=== PATIENT | female | born 1945 | race Caucasian/White ===

== ENCOUNTER 2017-05-01 12:59 | Observation (INO) | payer MEDICARE ==
[2017-05-01] MEDS ORDERED: Aspirin 325 mg EC Tablets PO STA (13:34)
--- NOTE | 2017-05-01 13:35 | C.PDOC ---
History Of Present Illness 71 year old female with Hx of HTN and DM presents to the ED c/o pressure like CP radiating to her back for the past 3 days. Patient states her pain worsens with movement and is a non smoker. Patient denies Hx of heart disease, DVT/PE, SOB, nasuea, vomit, fever, abdominal pain, dizziness, headache. Time Seen by Provider: 05/01/17 13:14 Chief Complaint (Nursing): Chest Pain History Per: Patient History/Exam Limitations: no limitations Onset/Duration Of Symptoms: Days Current Symptoms Are (Timing): Still Present Severity: None Quality: Pressure Associated Symptoms: denies: Nausea, Dyspnea Exacerbating Factors: Movement Alleviating Factors: None Recent travel outside of the [place]: No Additional History Per: Patient Past Medical History Reviewed: Historical Data, Nursing Documentation, Vital Signs Vital Signs: Last Vital Signs Temp Pulse 78 05/01/17 21:43 Resp 18 05/01/17 21:43 BP 113/61 05/01/17 21:43 Pulse Ox 95 05/01/17 21:43 - Medical History PMH: Depression, Diabetes, HTN Denies: Chronic Kidney Disease Surgical History: Appendectomy - [facility] Procedures COLONOSCOPY (03/06/14) Family History: States: Unknown Family Hx - Social History Hx Tobacco Use: No Hx Alcohol Use: No Hx Substance Use: No - Immunization History Hx Tetanus Toxoid Vaccination: No Hx Influenza Vaccination: No Hx Pneumococcal Vaccination: No Review Of Systems Constitutional: Negative for: Fever, Chills Cardiovascular: Positive for: Chest Pain. Negative for: Palpitations Respiratory: Negative for: Cough, Shortness of Breath Gastrointestinal: Negative for: Nausea, Vomiting, Abdominal Pain Musculoskeletal: Positive for: Back Pain Skin: Negative for: Rash Neurological: Negative for: Weakness, Numbness Physical Exam - Physical Exam Appears: Non-toxic, No Acute Distress Skin: Normal Color, Warm, Dry Head: Atraumatic, Normacephalic Nose: No Discharge Oral Mucosa: Moist Neck: Normal ROM, Supple Chest: Symmetrical Cardiovascular: Rhythm Regular, No Murmur Respiratory: Normal Breath Sounds, No Rales, No Rhonchi, No Wheezing Gastrointestinal/Abdominal: Soft, No Tenderness, No Guarding, No Rebound Back: No CVA Tenderness, No Vertebral Tenderness Extremity: Normal ROM, No Pedal Edema, No Calf Tenderness, No Swelling Neurological/Psych: Oriented x3, Normal Speech, Normal Cognition Gait: Steady ED Course And Treatment - Laboratory Results Result Diagrams: 05/01/17 13:51 05/01/17 13:51 ECG: Interpreted By Me, Viewed By Me ECG Rhythm: Sinus Rhythm ECG Interpretation: Normal Interpretation Of ECG: EKG NSR at 88 BPM, LVH, no ST or T wave abnormalities. Rate From EC O2 Sat by Pulse Oximetry: 94 (On RA) Pulse Ox Interpretation: Normal - Radiology CXR: Interpreted by Me, Viewed By Me CXR Interpretation: Yes: Other (Mild cardiomegaly and small bilateral pleural effusions possible (left greater than right was).Mild central pulmonary venous congestion versus carotid central pulmonary vasculature. Correlation with physical exam recommended) - CT Scan/US CTA chest Other Rad Studies (CT/US): Read By Radiologist, Radiology Report Reviewed CT/US Interpretation: IMPRESSION: 1. No evidence of pulmonary embolism. 2. Mosaic perfusion abnormality noted in both lungs which could reflect areas of air trapping or small. airway disease.. Subsegmental atelectasis is noted predominantly in the dependent portion of both. lung bases. 3. Moderate to large hiatal hernia. 4. Hepatic steatosis. 5. Scattered colonic diverticula. Medical Decision Making Medical Decision Making: Plan: * EKG ordered * Blood work ordered * CXR ordered * Ecotrin 325 mg PO given * Morphine 2 mg IVp given Assessment: CP Discussed with Dr. Kenney admit to Tele obs under her service for Chest pain Disposition Discussed With : Padmaja Kenney Doctor Will See Patient In The: Hospital Counseled Patient/Family Regarding: Studies Performed, Diagnosis - Disposition Disposition: HOSPITALIZED Disposition Time: 20:11 Condition: FAIR - Clinical Impression Clinical Impression: Chest pain - Scribe Statement The provider has reviewed the documentation as recorded by the Scribe Edy Vizcaino All medical record entries made by the Scribe were at my direction and personally dictated by me. I have reviewed the chart and agree that the record accurately reflects my personal performance of the history, physical exam, medical decision making, and the department course for this patient. I have also personally directed, reviewed, and agree with the discharge instructions and disposition.
[2017-05-01] MEDS ORDERED: Aspirin 325 mg EC Tablets PO ONE (13:53)
[2017-05-01 13:57] LABS: BASO # 0.1 K/uL (0.0-0.2); BASO % 0.5 % (0.0-2.0); HEMATOCRIT 40.8 % (34.0-47.0); LYMPH # 3.3 K/uL (1.0-4.3); LYMPH % 30.6 % (20.0-40.0); MEAN CELL VOLUME 89.8 fL (81.0-99.0); MEAN CORPUSCULAR HEMOGLOBIN 29.9 pg (27.0-31.0); MEAN CORPUSCULAR HGB CONC 33.3 g/dL (33.0-37.0); MEAN PLATELET VOLUME 9.3 fL (7.2-11.7); MONO # 1.2 K/uL (0.0-0.8); MONO % 11.2 % (0.0-10.0); WHITE BLOOD COUNT 10.8 K/uL (4.8-10.8)
[2017-05-01 14:16] LABS: ALKALINE PHOSPHATASE 86 U/L (38-126); ALT/SGPT 38 U/L (9-52); AST/SGOT 25 U/L (14-36); BILIRUBIN,TOTAL 0.4 mg/dL (0.2-1.3); BLOOD UREA NITROGEN 16 mg/dL (7-17); CALCIUM 8.7 mg/dl (8.6-10.4); CARBON DIOXIDE 32 mmol/L (22-30); CHLORIDE 99 mmol/L (98-107); GFR AFRICAN-AMERICAN > 60; GLUCOSE,RANDOM 85 mg/dL (65-105); SODIUM 139 mmol/L (132-148); TOTAL PROTEIN 8.9 g/dL (6.3-8.3)
[2017-05-01 14:21] LABS: ALB/GLOB RATIO 0.9 (1.0-2.1)
--- NOTE | 2017-05-01 14:39 | RAD ---
PROCEDURE: CHEST RADIOGRAPH, 1 VIEW HISTORY: chest pain COMPARISON: None available. FINDINGS: LUNGS: Shallow lung volumes. No significant appearing consolidation appreciated. . Trace subsegmental atelectatic changes at each lung base the shallow inspiration-possible. PLEURA: No pneumothorax. Minimal small effusions possible. CARDIOVASCULAR: Mild cardiomegaly. Mild central pulmonary venous congestion/crowding central pulmonary vessels -shallow inspiration OSSEOUS STRUCTURES: Thoracic spondylosis. Bilateral shoulder arthrosis VISUALIZED UPPER ABDOMEN: Normal. OTHER FINDINGS: None. IMPRESSION: Shallow lung volumes -limiting evaluation. Mild cardiomegaly and small bilateral pleural effusions possible (left greater than right was ( Mild central pulmonary venous congestion versus carotid central pulmonary vasculature. Correlation with physical exam recommended.
[2017-05-01] MEDS ORDERED: Iodixanol 320 MG/ML 100 ML BOTTLE IV ONE (16:12)
[2017-05-01] MEDS ORDERED: DiphenhydrAMINE 50 mg/ml Inj IVP STA (16:50)
[2017-05-01] MEDS ORDERED: DiphenhydrAMINE 50 mg/ml Inj ONE (16:53)
[2017-05-01] MEDS ORDERED: MethylPREDNISolone 40 mg Vial IVP STA (17:10)
[2017-05-01] MEDS ORDERED: Dexamethasone 4 mg/1 ml IV STA (17:11)
[2017-05-01] MEDS ORDERED: Dexamethasone 4 mg/1 ml ONE (17:14)
--- NOTE | 2017-05-01 19:46 | CT ---
EXAM: CT Angiography Chest With Intravenous Contrast EXAM DATE/TIME: Exam ordered 05/01/2017 2:41 PM CLINICAL HISTORY: 71 years old, female; Pain and signs and symptoms; Shortness of breath; Chest pain; Additional info: SOB and chest pain TECHNIQUE: Axial computed tomographic angiography images of the chest with intravenous contrast using pulmonary embolism protocol. All CT scans at this facility use one or more dose reduction techniques, viz.: automated exposure control; ma/kV adjustment per patient size (including targeted exams where dose is matched to indication; i.e. head); or iterative reconstruction technique. MIP reconstructed images were created and reviewed. Coronal and sagittal reformatted images were created and reviewed. CONTRAST: 100 mL of VISI administered intravenously. COMPARISON: No relevant prior studies available. FINDINGS: Pulmonary arteries: Unremarkable. No pulmonary embolism. Aorta: No acute findings. No thoracic aortic aneurysm. Lungs: Hypoventilatory changes are noted at both lung bases. Mosaic perfusion abnormalities noted in the mid and upper lung aguilar. No mass. Pleural space: Unremarkable. No significant effusion. No pneumothorax. Heart: Unremarkable. No cardiomegaly. No significant pericardial effusion. No evidence of RV dysfunction. Mediastinum: There is a large hiatal hernia. Bones/joints: No acute fracture. No dislocation. Soft tissues: Unremarkable. Lymph nodes: Unremarkable. No enlarged lymph nodes. Liver: The liver is low in density. Stomach and bowel: Colonic diverticula are noted. IMPRESSION: 1. No evidence of pulmonary embolism. 2. Mosaic perfusion abnormality noted in both lungs which could reflect areas of air trapping or small airway disease.. Subsegmental atelectasis is noted predominantly in the dependent portion of both lung bases. 3. Moderate to large hiatal hernia. 4. Hepatic steatosis. 5. Scattered colonic diverticula.
[2017-05-01] MEDS ORDERED: Enoxaparin 150 mg Syringe SC SCH (21:00)
[2017-05-01] MEDS: Enoxaparin 80 mg Syringe SC SCH (21:44)
[2017-05-01] MEDS ORDERED: (Novolin R) Insulin Human Regular 100 units/ml vial ONE (22:04)
[2017-05-01] MEDS: (Novolin R) Insulin Human Regular 100 units/ml vial SC SCH (22:13)
[2017-05-02 00:52] VITALS: O2SAT 95
[2017-05-02 03:39] LABS: CHOLESTEROL 151 mg/dL (0-199)
[2017-05-02] MEDS: (Novolin R) Insulin Human Regular 100 units/ml vial SC SCH ×4 (07:57→17:35)
[2017-05-02] MEDS ORDERED: Pantoprazole 40 mg EC Tab PO SCH (10:00)
[2017-05-02] MEDS: Enoxaparin 80 mg Syringe SC SCH (10:12)
--- NOTE | 2017-05-02 10:25 | CP.PCM.PN ---
Subjective - Date & Time of Evaluation Date of Evaluation: 05/02/17 Time of Evaluation: 10:20 - Subjective Subjective: The pt is a 68 year old woman, non smoker, without any known CAD. The patient complained of chest pain lasting three days, worse when bending forwards and also lying down. No exertional component or CALLEJAS, dizziness or palpitations. Pt feels better now, with only mild residual pain over left breast. ECg is normal, tni are normal times three. CTA is neg for PE and echo reveals mild AI , normal Lv EF. Objective - Vital Signs/Intake and Output Vital Signs (last 24 hours): Temp Pulse Resp BP Pulse Ox 97.7 F 67 18 130/78 95 05/02/17 08:18 05/02/17 08:18 05/02/17 08:18 05/02/17 08:18 05/02/17 08:18 Intake and Output: 05/02/17 05/02/17 06:59 18:59 Intake Total 120 Balance 120 - Medications Medications: Current Medications Aspirin (Ecotrin) 81 mg PO DAILY [facility] Last Admin: 05/02/17 10:08 Dose: 81 mg Carvedilol (Coreg) 3.125 mg PO STAT [facility] Enoxaparin Sodium (Lovenox) 77 mg SC Q12H [facility] Last Admin: 05/02/17 10:12 Dose: 77 mg Glimepiride (Amaryl) 2 mg PO DAILY [facility] Last Admin: 05/02/17 10:08 Dose: 2 mg Insulin Human Regular (Novolin R) 0 unit SC ACHS [facility] PRN Reason: Protocol Last Admin: 05/02/17 10:11 Dose: 2 unit Lisinopril (Zestril) 10 mg PO DAILY [facility] Last Admin: 05/02/17 10:07 Dose: 10 mg Metformin HCl (Glucophage) 1,000 mg PO DAILY [facility] Last Admin: 05/02/17 10:11 Dose: Not Given Pantoprazole Sodium (Protonix Ec Tab) 40 mg PO DAILY [facility] Last Admin: 05/02/17 10:07 Dose: 40 mg Rosuvastatin Calcium (Crestor) 20 mg PO HS [facility] Sitagliptin Phosphate (Januvia) 50 mg PO DAILY [facility] Last Admin: 05/02/17 10:08 Dose: 50 mg - Labs Labs: 05/01/17 13:51 05/01/17 13:51 - Constitutional Appears: Well - Head Exam Head Exam: ATRAUMATIC - Eye Exam Eye Exam: EOMI - ENT Exam ENT Exam: Mucous Membranes Dry - Neck Exam Neck Exam: Full ROM - Respiratory Exam Respiratory Exam: Clear to Ausculation Bilateral - Cardiovascular Exam Cardiovascular Exam: REGULAR RHYTHM - Rectal Exam Rectal Exam: NORMAL INSPECTION - Exam External exam: NORMAL EXTERNAL EXAM - Extremities Exam Extremities Exam: Full ROM - Back Exam Back Exam: NORMAL INSPECTION - Neurological Exam Neurological Exam: Alert, Awake, Oriented x3 Assessment and Plan - Assessment and Plan (Free Text) Assessment: 1, non anginal chest pain ,pt is reassured. 2. Pt is a diabetic and is advised to undergo ecg stres testing in the future. 3. the dose of coreg 3.125 may be stopped.
[2017-05-02 16:15] VITALS: BP 116/67; RESP 20; TEMP 98.2
--- NOTE | 2017-05-02 16:15 | CP.PCM.HP ---
History of Present Illness - History of Present Illness History of Present Illness: Pt was admitted to ER for observation with diagnosis of atypical chest pain. Pt reports that as she was trying to get up from a chair noted low back pain, which then started to be reflected on her chest. THis pain persisted for 3 more days so she decided to come to the ER> PT denies sob,palpitation or diphoresis. PMH: hypertension Diabetes Tinea nigra Acute gastritis Urinary incontinence Social Hx: Neg. smoke, never smoker Socially ETOH Neg. drugs Family Hx: Mother- HTN Father- Unknown Allergies: Penicillin Meclizine Current meds: Sitagliptin 50mg- Metformin 1,000 mg 1 tab po qd Lisinopril 20 mg- HCTZ 12.5 mg 1 tab po qd Mobic 7.5 mg 1 tab po BId prn Ecotrin 81 mg 1 tab po qd Detrol LA 4 mg 1 cap po qd Norvasc 5 mg 1 tab po qd Present on Admission - Present on Admission Any Indicators Present on Admission: No Review of Systems - Constitutional Constitutional: absent: Chills, Fatigue, Fever - Cardiovascular Cardiovascular: Chest Pain. absent: Edema, Paroxysmal Nocturnal Dyspnea - Respiratory Respiratory: absent: Cough, Wheezing Past Patient History - Past Medical History & Family History Past Medical History?: Yes - Past Social History Smoking Status: Never Smoked - CARDIAC Hx Hypertension: Yes - PULMONARY Hx Respiratory Disorders: No - NEUROLOGICAL Hx Neurological Disorder: Yes Hx Vertigo: Yes - HEENT Hx HEENT Problems: No - RENAL Hx Chronic Kidney Disease: No - ENDOCRINE/METABOLIC Hx Endocrine Disorders: Yes Hx Diabetes Mellitus Type 2: Yes - HEMATOLOGICAL/ONCOLOGICAL Hx Blood Disorders: No - INTEGUMENTARY Hx Dermatological Problems: Yes Other/Comment: Vitiligo - MUSCULOSKELETAL/RHEUMATOLOGICAL Hx Falls: No - GASTROINTESTINAL Hx Gastrointestinal Disorders: No - GENITOURINARY/GYNECOLOGICAL Hx Genitourinary Disorders: Yes (DROPPED BLADDER) - PSYCHIATRIC Hx Substance Use: No - SURGICAL HISTORY Hx Appendectomy: Yes (1970) Other/Comment: Left Ovary Removed,Rt. Half Removed in 1970 - ANESTHESIA Hx Anesthesia: Yes Hx Anesthesia Reactions: No Hx Malignant Hyperthermia: No Has any member of the family had a problem w/ anesthesia?: No Meds Allergies/Adverse Reactions: Allergies Allergy/AdvReac Type Severity Reaction Status Date / Time Penicillins Allergy Verified 05/01/17 13:33 shellfish derived Allergy Verified 05/01/17 23:11 Physical Exam - Eye Exam Eye Exam: Normal appearance - ENT Exam ENT Exam: Mucous Membranes Moist, Normal Exam - Respiratory Exam Respiratory Exam: Clear to Auscultation Bilateral, NORMAL BREATHING PATTERN - Cardiovascular Exam Cardiovascular Exam: REGULAR RHYTHM, RRR, +S1, +S2 - GI/Abdominal Exam GI & Abdominal Exam: Normal Bowel Sounds Results - Vital Signs Recent Vital Signs: Last Vital Signs Temp 97.7 F 05/02/17 08:18 Pulse 65 05/02/17 11:51 Resp 18 05/02/17 08:18 BP 130/78 05/02/17 08:18 Pulse Ox 95 05/02/17 08:18 - Labs Result Diagrams: 05/01/17 13:51 05/01/17 13:51 Labs: Laboratory Results - last 24 hr 05/01/17 05/01/17 05/02/17 21:44 21:45 02:08 POC Glucose (mg/dL) 332 H 318 H Total Creatine Kinase 51 CK-MB (Mass) 0.49 Troponin I < 0.0120 NT-Pro-B Natriuret Pep 139 Triglycerides Cholesterol LDL Cholesterol Direct HDL Cholesterol 05/02/17 05/02/17 05/02/17 03:30 06:30 11:17 POC Glucose (mg/dL) 210 H 256 H Total Creatine Kinase 45 CK-MB (Mass) 0.70 Troponin I < 0.0120 NT-Pro-B Natriuret Pep Triglycerides 60 Cholesterol 151 LDL Cholesterol Direct 88 HDL Cholesterol 47 Assessment & Plan - Assessment and Plan (Free Text) Assessment: Atypical chest pain back pain ct of chest done in ER and normla given her risk as she is a dibetic will admit under observation/ diabetes cont meds bp added coreg pending eval. cardilogy eval - Date & Time Date: 05/01/17 Time: 08:00
--- NOTE | 2017-05-02 17:28 | CP.PCM.DIS ---
Provider - Provider Date of Admission: 05/01/17 20:09 Attending physician: Padmaja Kenney MD Time Spent in preparation of Discharge (in minutes): 30 Hospital Course - Lab Results Lab Results: Most Recent Lab Values WBC 10.8 K/uL (4.8-10.8) 05/01/17 13:51 RBC 4.54 Mil/uL (3.80-5.20) 05/01/17 13:51 Hgb 13.6 g/dL (11.0-16.0) 05/01/17 13:51 Hct 40.8 % (34.0-47.0) 05/01/17 13:51 MCV 89.8 fL (81.0-99.0) 05/01/17 13:51 MCH 29.9 pg (27.0-31.0) 05/01/17 13:51 MCHC 33.3 g/dL (33.0-37.0) 05/01/17 13:51 RDW 14.0 % (11.5-14.5) 05/01/17 13:51 Plt Count 221 K/uL (130-400) 05/01/17 13:51 MPV 9.3 fL (7.2-11.7) 05/01/17 13:51 Neut % (Auto) 57.7 % (50.0-75.0) 05/01/17 13:51 Lymph % (Auto) 30.6 % (20.0-40.0) 05/01/17 13:51 [place] % (Auto) 11.2 % (0.0-10.0) H 05/01/17 13:51 Eos % (Auto) 0.0 % (0.0-4.0) 05/01/17 13:51 Baso % (Auto) 0.5 % (0.0-2.0) 05/01/17 13:51 Neut # 6.2 K/uL (1.8-7.0) 05/01/17 13:51 Lymph # 3.3 K/uL (1.0-4.3) 05/01/17 13:51 [place] # 1.2 K/uL (0.0-0.8) H 05/01/17 13:51 Eos # 0.0 K/uL (0.0-0.7) 05/01/17 13:51 Baso # 0.1 K/uL (0.0-0.2) 05/01/17 13:51 D-Dimer, Quantitative 390 ng/mlDDU (0-243) H 05/01/17 13:51 Sodium 139 mmol/L (132-148) 05/01/17 13:51 Potassium 4.0 mmol/L (3.6-5.2) 05/01/17 13:51 Chloride 99 mmol/L (98-107) 05/01/17 13:51 Carbon Dioxide 32 mmol/L (22-30) H 05/01/17 13:51 Anion Gap 13 (10-20) 05/01/17 13:51 BUN 16 mg/dL (7-17) 05/01/17 13:51 Creatinine 0.5 mg/dL (0.7-1.2) L 05/01/17 13:51 Est GFR ( Amer) > 60 05/01/17 13:51 Est GFR (Non-Af Amer) > 60 05/01/17 13:51 POC Glucose (mg/dL) 167 mg/dL (65-110) H 05/02/17 16:44 Random Glucose 85 mg/dL (65-105) 05/01/17 13:51 Calcium 8.7 mg/dl (8.6-10.4) 05/01/17 13:51 Total Bilirubin 0.4 mg/dL (0.2-1.3) 05/01/17 13:51 AST 25 U/L (14-36) 05/01/17 13:51 ALT 38 U/L (9-52) 05/01/17 13:51 Alkaline Phosphatase 86 U/L (38-126) 05/01/17 13:51 Total Creatine Kinase 45 U/L (30-135) 05/02/17 03:30 CK-MB (Mass) 0.70 ng/mL (0.0-3.38) 05/02/17 03:30 Troponin I < 0.0120 ng/mL (0.00-0.120) 05/02/17 03:30 NT-Pro-B Natriuret Pep 139 pg/mL (0-900) 05/01/17 21:44 Total Protein 8.9 g/dL (6.3-8.3) H 05/01/17 13:51 Albumin 4.2 g/dL (3.5-5.0) 05/01/17 13:51 Globulin 4.7 gm/dL (2.2-3.9) H 05/01/17 13:51 Albumin/Globulin Ratio 0.9 (1.0-2.1) L 05/01/17 13:51 Triglycerides 60 mg/dL (0-149) 05/02/17 03:30 Cholesterol 151 mg/dL (0-199) 05/02/17 03:30 LDL Cholesterol Direct 88 mg/dL (0-129) 05/02/17 03:30 HDL Cholesterol 47 mg/dL (30-70) 05/02/17 03:30 Lipase 81 U/L (23-300) 05/01/17 13:51 - Hospital Course Hospital Course: Pt was admittd as precaution. PT had negative enzymes and ekg. She was elvaluated by Dr. Allen from cardiology who cleared her for dscharge and recommeded outpt stress test. PT feels well and is anxious to go home. Dc home I will see her tomorrow in my office. Discharge Exam - Head Exam Head Exam: ATRAUMATIC - Eye Exam Eye Exam: Normal appearance, PERRL - Respiratory Exam Respiratory Exam: Clear to PA & Lateral, NORMAL BREATHING PATTERN - Cardiovascular Exam Cardiovascular Exam: REGULAR RHYTHM, RRR, +S1, +S2. absent: JVD, Rubs - GI/Abdominal Exam GI & Abdominal Exam: Normal Bowel Sounds - Extremities Exam Extremities exam: full ROM - Back Exam Back exam: NORMAL INSPECTION - Neurological Exam Neurological exam: CN II-XII Intact, Oriented x3 - Psychiatric Exam Psychiatric exam: Normal Affect, Normal Mood - Skin Skin Exam: Normal Color Discharge Plan - Follow Up Plan Condition: FAIR Disposition: HOME/ ROUTINE
--- NOTE | 2017-05-02 17:30 | CP.PCM.PN ---
Subjective - Date & Time of Evaluation Date of Evaluation: 05/02/17 Time of Evaluation: 17:30 - Subjective Subjective: PATIENT WAS ADMITTED FOR CHEST PAIN; AAOX3 DENIES CHEST PAIN, SOB N/V NO SIGN OF DISTRESS NOTED Objective - Vital Signs/Intake and Output Vital Signs (last 24 hours): Temp Pulse Resp BP Pulse Ox 98.2 F 79 20 116/67 95 05/02/17 15:15 05/02/17 15:20 05/02/17 15:15 05/02/17 15:15 05/02/17 15:15 Intake and Output: 05/02/17 05/02/17 06:59 18:59 Intake Total 120 700 Balance 120 700 - Medications Medications: Current Medications Aspirin (Ecotrin) 81 mg PO DAILY [facility] Last Admin: 05/02/17 10:08 Dose: 81 mg Carvedilol (Coreg) 3.125 mg PO STAT [facility] Enoxaparin Sodium (Lovenox) 77 mg SC Q12H [facility] Last Admin: 05/02/17 10:12 Dose: 77 mg Glimepiride (Amaryl) 2 mg PO DAILY [facility] Last Admin: 05/02/17 10:08 Dose: 2 mg Insulin Human Regular (Novolin R) 0 unit SC ACHS [facility] PRN Reason: Protocol Last Admin: 05/02/17 11:39 Dose: 3 unit Lisinopril (Zestril) 10 mg PO DAILY [facility] Last Admin: 05/02/17 10:07 Dose: 10 mg Metformin HCl (Glucophage) 1,000 mg PO DAILY [facility] Last Admin: 05/02/17 10:11 Dose: Not Given Pantoprazole Sodium (Protonix Ec Tab) 40 mg PO DAILY [facility] Last Admin: 05/02/17 10:07 Dose: 40 mg Rosuvastatin Calcium (Crestor) 20 mg PO HS [facility] Sitagliptin Phosphate (Januvia) 50 mg PO DAILY [facility] Last Admin: 05/02/17 10:08 Dose: 50 mg - Labs Labs: 05/01/17 13:51 05/01/17 13:51 Assessment and Plan - Assessment and Plan (Free Text) Assessment: A/P PATIENT IS SEEN AND EXAMINED AT THE BEDSIDE; LUNG SOUND CLEAR CTA WAS LILLY TNIX3 WERE NEG ; ECG IS NORMAL DISCUSS WITH DR JUNIOR WHO CLEAR THE PATIENT FOR DC FOLLOW UP WITH DR JUNIOR TOMORROW IN HER OFFICE AROUND 2 PM ---CALL HER OFFICE TO CONFIRM CONTINUE ALL YOUR HOME MED PER MED RECS NEW RX GIVEN ASPIRIN 81 MG PO DAILY TRY TO GET SOME REST FOR A WEEK CALL DR JUNIOR OR GO TO THE EMERGENCY ROOM IF SYMPTOMS RETURN OR WORSENING DR JUNIOR AND SLUDGE CONTROL OPERATOR DISCUSS WITH PATIENT ABOUT THE RISK TO GO TO [facility] ON THE HEIGHT BUT THE PATIENT INSIST TO GO VISIT FOR HER 72TH BIRTHDAY PATIENT AGREE WITH THE DC PLAN AND VERBALIZED UNDERSTANDING
[2017-05-02 18:10] VITALS: PULSE 69
== END 2017-05-02 18:25 | disposition home or self-care (01) ==
LOC: C.ER 12:59 → C.9E 20:09 → C.6T 22:28
PROVIDERS: ADMIT Internal Medicine; ATTEND Internal Medicine
DX: R07.9 Chest pain, unspecified (principal); I10 Essential (primary) hypertension; E11.9 Type 2 diabetes mellitus without complications; B36.1 Tinea nigra; Z79.82 Long term (current) use of aspirin; Z82.49 Family history of ischemic heart disease and other diseases of the circulatory system; L80 Vitiligo; Z90.49 Acquired absence of other specified parts of digestive tract
CPT/HCPCS: 36415; 71010; 71275; 80053; 80061; 82948; 83690; 83880; 84484; 85025; 85378; 93306; 96372; 96374; G0378; J1100; J1200; J1650; J2270; J2920; Q9967